=== PATIENT | female | born 1970 | race American Indian/Alaskan Native ===

== ENCOUNTER 2017-07-22 13:14 | Emergency (ER) | payer MEDICAID ==
[~2017-07-22] VITALS: Ht 162.6 cm; Wt 72.7 kg
[~2017-07-22 13:14] MED LIST: DOXY100T2 PO
[2017-07-22 13:16] VITALS: BP 131/79
[2017-07-22] MEDS ORDERED: LIDOcaine 1.5% w/epinephrine 1:200,000 5ml ampul IJ ONE (14:15)
[2017-07-22] MEDS ORDERED: IBUP-1986 PO (14:44)
[2017-07-22] MEDS ORDERED: BACDS PO (14:44)
[2017-07-22 14:49] LABS: URINE HCG NEGATIVE (NEG)
== END 2017-07-22 15:38 | disposition home or self-care (01) ==
LOC: ER 13:14
DX: L02.511 Cutaneous abscess of right hand (principal); Z59.0 Homelessness; Z88.0 Allergy status to penicillin; Z79.2 Long term (current) use of antibiotics
CPT/HCPCS: 10060; 81025; 99283; J3490

== ENCOUNTER 2019-04-07 16:40 | Emergency (ER) | payer MEDICAID ==
[~2019-04-07] VITALS: Ht 162.6 cm; Wt 83.7 kg
[~2019-04-07 16:40] MED LIST changes: +IBUP-1986 PO
[2019-04-07 16:45] VITALS: BP 135/91
[2019-04-07] MEDS ORDERED: ketorolac trometh. 30mg/ml inj. IM ONE (17:10)
[2019-04-07 17:34] LABS: URINE HCG NEGATIVE (NEG)
== END 2019-04-07 17:58 | disposition home or self-care (01) ==
LOC: ER 16:41
DX: N93.8 Other specified abnormal uterine and vaginal bleeding (principal); R10.2 Pelvic and perineal pain; Z98.890 Other specified postprocedural states; Z59.0 Homelessness; Z88.0 Allergy status to penicillin; Z79.899 Other long term (current) drug therapy
CPT/HCPCS: 81025; 96372; 99283; J1885

== ENCOUNTER 2020-03-07 11:55 | Day surgery (SDC) | payer MEDICAID ==
[2020-02-29 14:49] LABS: ALBUMIN 3.8 G/DL (3.4-5.0); ALKALINE PHOSPHATASE 61 IU/L (46-116); BASOPHILS # (AUTO) 0.1 X10'3 (0-0.2); BLOOD UREA NITROGEN 8 MG/DL (7-18); BUN/CREATININE RATIO 11.8 (6.6-38.0); CALCIUM 8.6 MG/DL (8.5-10.1); CHLORIDE 104 MMOL/L (99-107); CREATININE 0.68 MG/DL (0.40-0.90); EOSINOPHILS # (AUTO) 0.1 X10'3 (0-0.9); EOSINOPHILS % (AUTO) 0.9 % (0-6); LYMPHOCYTES # (AUTO) 1.8 X10'3 (1.1-4.8); LYMPHOCYTES % (AUTO) 28.5 % (21-51); MEAN CORPUSCULAR HEMOGLOBIN 31.4 PG (27.0-31.0); MEAN CORPUSCULAR HGB CONC 33.5 g/dL (33.0-36.5); MEAN CORPUSCULAR VOLUME 93.8 FL (78-98); MONOCYTES # (AUTO) 0.4 X10'3 (0-0.9); MONOCYTES % (AUTO) 6.8 % (2-12); NEUTROPHILS # (AUTO) 3.9 X10'3 (1.8-7.7); NEUTROPHILS % (AUTO) 62.8 % (42-75); PRE OP ALT 21 U/L (30-65); PRE OP ANION GAP 6 (8-16); PRE OP AST 13 U/L (10-37); PRE OP BILIRUB, TOTAL 0.4 MG/DL (0.0-1.0); PRE OP GLUCOSE 98 MG/DL (70-104); PRE OP HEMATOCRIT 39.9 % (35.0-45.0); PRE OP HEMOGLOBIN 13.4 g/dL (12.0-16.0); PRE OP PLATELET COUNT 320 X10'3 (140-440); PRE OP POTASSIUM 3.6 MMOL/L (3.4-5.1); PRE OP SODIUM 138 MMOL/L (135-145); RED BLOOD COUNT 4.25 X10'6 (4.20-5.60); TOTAL PROTEIN 7.7 G/DL (6.4-8.2); eGFR > 90 ML/MIN
[2020-02-29 15:00] LABS: HCG SERUM QL NEGATIVE
[2020-03-07] VITALS (7 sets, daily range): BP systolic 112–131; BP diastolic 74–85
[~2020-03-07] VITALS: Ht 162.6 cm; Wt 80.6 kg
[~2020-03-07 11:55] MED LIST changes: -DOXY100T2 PO; -IBUP-1986 PO; +NO HOME MEDS; +albuterol 2.5 MG/3 ML nebule NEB ONE; +famotidine 20mg tablet PO ONE; +ringers solution, lacted 1,000 ML IV SCH
[2020-03-07] MEDS ORDERED: diazepam 5mg tablet PO ONE (16:25)
[2020-03-07] MEDS ORDERED: BUPIVAcaine/PF 2.5 mg/ml (0.25%) 30ml vial ONE (16:58)
[2020-03-07] MEDS ORDERED: neostigmine methylsulfate 1 MG/ML 10ml vial ONE (17:07)
[2020-03-07] MEDS ORDERED: glycopyrrolate 0.2mg/ml inj ONE (17:07)
[2020-03-07] MEDS ORDERED: sevoflurane 250ml liquid IH ONE (17:07)
[2020-03-07] MEDS ORDERED: midazolam 2 mg/2 ml injection ONE (17:10)
[2020-03-07] MEDS ORDERED: fentaNYL/PF 50MCG/1 ML 2ML syringe ONE ×2 (17:10→17:33)
[2020-03-07] MEDS ORDERED: rocuronium 10mg/ml inj IV ONE (17:11)
[2020-03-07] MEDS ORDERED: propofol inj 20 ML IV ONE (17:16)
[2020-03-07] MEDS ORDERED: ondansetron/PF 4mg/2ml inj ONE (17:35)
[2020-03-07] MEDS ORDERED: dexamethasone sod phosphate 4mg/ml inj. ONE (17:35)
[2020-03-07] MEDS ORDERED: meperidine/PF 25mg/ml syringe IV PRN ×3 (17:50)
[2020-03-07] MEDS ORDERED: proCHLORperazine 10 MG/2 ml inj IV PRN (17:50)
[2020-03-07] MEDS ORDERED: ringers solution, lacted 1,000 ML IV SCH (17:50)
[2020-03-07] MEDS ORDERED: morphine 2 MG/ML inj. syringe IV PRN (17:50)
[2020-03-07] MEDS ORDERED: morphine 4 MG/ML inj SYRINge IV PRN (17:50)
[2020-03-07] MEDS ORDERED: ondansetron/PF 4mg/2ml inj IV PRN (17:50)
[2020-03-07] MEDS ORDERED: fluoroscein sod 10% (100mg/ml) 5ml vial ONE (18:26)
[2020-03-07] MEDS ORDERED: ketorolac trometh. 30mg/ml inj. ONE (18:41)
--- NOTE | 2020-03-07 19:00 | NUR ---
Received from OR via BED , accompanied by Anesthesiologist DR SCHREIBER and report given by Anesthesiolgist. PATIENT WAKING UP, DENIES, V/S WNL, NEUROVASCULAR CHECKS INTACT, 20G PIV LUE, SCD ON, BANDAIDS AND STERISTRIPS TO LAP SIGHTS OF ABDOMEN AND WITH PERIPAD WITH SCANT DRAINAGE CDI
[2020-03-07] MEDS ORDERED: oxyCODONE/APAP 5-325mg tablet PO PRN ×2 (19:05)
--- NOTE | 2020-03-07 19:50 | NUR ---
PATIENT A&OX4, PAIN CONTROLLED,, V/S WNL, NEUROVASCULAR CHECKS INTACT, 20G PIV LUE D/C, SCD OFF, BANDAIDS AND STERISTRIPS TO LAP SIGHTS OF ABDOMEN AND WITH PERIPAD WITH SCANT DRAINAGE CDI. I HAVE REVIEWED D/C INSTRUCTIONS WITH PATIENT AND FAMILY AND THEY HAVE VERBALIZED UNDERSTANDING. PATIENT D/C HOME WITH ALL BELONGINGS AND FAMILY GAVE TRANSPORT HOME.
== END 2020-03-07 19:50 | disposition home or self-care (01) ==
LOC: PAS 11:55
PROVIDERS: ATTEND Obstetrics & Gynecology
DX: N92.0 Excessive and frequent menstruation with regular cycle (principal); Z30.2 Encounter for sterilization; N70.11 Chronic salpingitis; N73.6 Female pelvic peritoneal adhesions (postinfective); F32.9 Major depressive disorder, single episode, unspecified; F41.9 Anxiety disorder, unspecified; M19.90 Unspecified osteoarthritis, unspecified site; Z20.822 Contact with and (suspected) exposure to COVID-19; Z86.14 Personal history of Methicillin resistant Staphylococcus aureus infection; Z87.891 Personal history of nicotine dependence; Z79.899 Other long term (current) drug therapy; Z88.0 Allergy status to penicillin; Z98.890 Other specified postprocedural states
CPT/HCPCS: 36415; 58563; 58670; 80053; 82948; 84703; 85025; 86885; 86900; 86901; 87635; 93005; A4649; J1100; J1885; J2250; J2405; J2704; J2710; J3010; J3490; J7030; J7120; A4355; A4618; A6250; A6258; A7000

== ENCOUNTER → 2020-09-01 | Emergency (ER) | payer MEDICAID ==
[~2020-09-01] VITALS: Ht 162.6 cm; Wt 80.0 kg
[~2020-09-01] MED LIST changes: +CEPH250T PO; +SULF1TAB45 PO; -albuterol 2.5 MG/3 ML nebule NEB ONE; -famotidine 20mg tablet PO ONE; -ringers solution, lacted 1,000 ML IV SCH
[2020-09-01 17:09] VITALS: BP 122/78
== END | disposition home or self-care (01) ==
LOC: ER 17:07
DX: L03.113 Cellulitis of right upper limb (principal); Z59.0 Homelessness; Z90.89 Acquired absence of other organs; Z88.0 Allergy status to penicillin
CPT/HCPCS: 99283

== ENCOUNTER 2020-12-03 16:34 | Emergency (ER) | payer MEDICAID ==
[~2020-12-03] VITALS: Ht 160 cm; Wt 77.3 kg
[~2020-12-03 16:34] MED LIST changes: -CEPH250T PO; -SULF1TAB45 PO
[2020-12-03 17:44] LABS: BASOPHILS % (AUTO) 0.7 % (0-1); EOSINOPHILS # (AUTO) 0.1 X10'3 (0-0.9); EOSINOPHILS % (AUTO) 1.9 % (0-6); HEMATOCRIT 42.6 % (35.0-45.0); HEMOGLOBIN 14.7 g/dl (12.0-16.0); LYMPHOCYTES # (AUTO) 2.2 X10'3 (1.1-4.8); LYMPHOCYTES % (AUTO) 38.8 % (21-51); MEAN CORPUSCULAR HEMOGLOBIN 33.3 PG (27.0-31.0); MEAN CORPUSCULAR HGB CONC 34.4 g/dL (33.0-36.5); MEAN CORPUSCULAR VOLUME 96.7 FL (78-98); MEAN PLATELET VOLUME 7.4 FL (7.4-10.4); MONOCYTES # (AUTO) 0.5 X10'3 (0-0.9); NEUTROPHILS # (AUTO) 2.9 X10'3 (1.8-7.7); NEUTROPHILS % (AUTO) 50.6 % (42-75); PLATELET COUNT 290 X10'3 (140-440); RED BLOOD COUNT 4.41 X10'6 (4.20-5.60); RED CELL DISTRIBUTION WIDTH 12.4 % (11.5-14.5); WHITE BLOOD COUNT 5.8 X10'3 (4.5-11.0)
[2020-12-03 17:53] LABS: ALANINE AMINOTRANSFERASE 26 U/L (12-78); ALKALINE PHOSPHATASE 75 IU/L (46-116); ANION GAP 10 (8-16); ASPARTATE AMINO TRANSFERASE 14 U/L (10-37); BILIRUBIN,TOTAL 0.3 MG/DL (0.1-1.0); BLOOD UREA NITROGEN 14 MG/DL (7-18); BUN/CREATININE RATIO 16.7 (6.6-38.0); CALCIUM 8.9 MG/DL (8.5-10.1); CHLORIDE 106 MMOL/L (99-107); CREATININE 0.84 MG/DL (0.40-0.90); GLUCOSE 94 MG/DL (70-104); LIPASE 129 U/L (73-393); SODIUM 141 MMOL/L (135-145); TOTAL PROTEIN 7.9 G/DL (6.4-8.2); eGFR 72 ML/MIN
[2020-12-03 18:07] LABS: CLARITY,URINE CLEAR (Clear); COLOR,URINE YELLOW (Yellow); GLUCOSE, URINE Negative (Neg); KETONES,URINE Negative (Neg); LEUKOCYTE ESTERASE ,URINE NEGATIVE (Neg); NITRITES, URINE NEGATIVE (Neg); OCCULT BLOOD,URINE NEGATIVE (Neg); PROTEIN,URINE Negative (Neg); UA COLLECTION TYPE CLN CATCH MIDSTREAM; UROBILINOGEN,URINE 0.2 E.U/dL (0.2-1.0)
--- NOTE | 2020-12-03 18:19 | NUR ---
pt reports right cva tenderness upon palpation.
[2020-12-03] MEDS ORDERED: acetaminophen 325mg tablet PO ONE (19:20)
[2020-12-03] MEDS ORDERED: ketorolac tromethamine 15mg/ml inj. IV ONE (19:20)
[2020-12-03] MEDS ORDERED: DIAZ-351 PO (19:54)
[2020-12-03] MEDS ORDERED: METH-797 PO (19:54)
[2020-12-03] MEDS ORDERED: PRED20TA PO (19:54)
[2020-12-03 20:14] VITALS: BP 128/88
== END 2020-12-03 20:15 | disposition home or self-care (01) ==
LOC: ER 16:34
DX: S39.012A Strain of muscle, fascia and tendon of lower back, initial encounter (principal); N20.0 Calculus of kidney; M54.41 Lumbago with sciatica, right side; R10.84 Generalized abdominal pain; R11.0 Nausea; Z72.89 Other problems related to lifestyle; Z59.00 Homelessness unspecified; Z90.89 Acquired absence of other organs; Z88.0 Allergy status to penicillin; Z79.899 Other long term (current) drug therapy; X58.XXXA Exposure to other specified factors, initial encounter; Y93.89 Activity, other specified; Y92.89 Other specified places as the place of occurrence of the external cause; Y99.8 Other external cause status
CPT/HCPCS: 36415; 74176; 80053; 81003; 83690; 85025; 96374; 99284; J1885

== ENCOUNTER 2022-09-20 10:18 | Emergency (ER) | payer BC, MEDICAID ==
[~2022-09-20] VITALS: Ht 162.6 cm; Wt 65.9 kg
[~2022-09-20 10:18] MED LIST changes: +DIAZ-351 PO; +METH-797 PO
[2022-09-20 10:23] VITALS: BP 120/81; PULSE 91; RESP 20; TEMP 98.3; O2SAT 98
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
[2022-09-20] MEDS ORDERED: ACET-76 PO (12:39)
== END 2022-09-20 12:42 | disposition home or self-care (01) ==
LOC: ER 10:18
DX: S05.12XA Contusion of eyeball and orbital tissues, left eye, initial encounter (principal); S00.83XA Contusion of other part of head, initial encounter; Y04.8XXA Assault by other bodily force, initial encounter; Y93.89 Activity, other specified; Y92.89 Other specified places as the place of occurrence of the external cause; Y99.8 Other external cause status
CPT/HCPCS: 70450; 70486; 99284

== ENCOUNTER 2023-12-26 14:04 | Emergency (ER) | payer BC, MEDICAID ==
[~2023-12-26] VITALS: Ht 162.6 cm; Wt 65.0 kg
[~2023-12-26 14:04] MED LIST changes: +CYCL-1 PO
[2023-12-26 14:08] VITALS: BP 146/91; PULSE 84; RESP 16; O2SAT 96
[2023-12-26 14:31] LABS: BILIRUBIN,URINE NEGATIVE (Neg); CLARITY,URINE CLEAR (Clear); COLOR,URINE YELLOW (Yellow); GLUCOSE, URINE NEGATIVE (Neg); KETONES,URINE NEGATIVE (Neg); LEUKOCYTE ESTERASE ,URINE NEGATIVE (Neg); NITRITES, URINE NEGATIVE (Neg); OCCULT BLOOD,URINE TRACE-INTACT (Neg); PROTEIN,URINE NEGATIVE (Neg); UA COLLECTION TYPE CLN CATCH MIDSTREAM; UROBILINOGEN,URINE 0.2 E.U/dL (0.2-1.0)
[2023-12-26 14:41] LABS: BACTERIA,URINE FEW /HPF (Neg); MUCUS STRANDS NONE SEEN /LPF (Neg); RBC,URINE 0-2 /HPF (0-2); SQUAMOUS EPITHELIAL CELL,UR FEW /LPF (FEW); WBC,URINE NONE SEEN /HPF (0-4)
[2023-12-26 14:45] LABS: BASOPHILS % (AUTO) 0.7 % (0-1); EOSINOPHILS % (AUTO) 0.8 % (0-6); HEMATOCRIT 44.8 % (35.0-45.0); HEMOGLOBIN 15.2 g/dl (12.0-16.0); LYMPHOCYTES # (AUTO) 1.9 X10'3 (1.1-4.8); MEAN CORPUSCULAR HEMOGLOBIN 33.1 PG (27.0-31.0); MEAN CORPUSCULAR HGB CONC 33.8 g/dL (33.0-36.5); MEAN CORPUSCULAR VOLUME 97.8 FL (78-98); MEAN PLATELET VOLUME 7.4 FL (7.4-10.4); MONOCYTES # (AUTO) 0.3 X10'3 (0-0.9); MONOCYTES % (AUTO) 4.8 % (2-12); NEUTROPHILS # (AUTO) 3.4 X10'3 (1.8-7.7); NEUTROPHILS % (AUTO) 59.7 % (42-75); PLATELET COUNT 295 X10'3 (140-440); RED BLOOD COUNT 4.58 X10'6 (4.20-5.60); RED CELL DISTRIBUTION WIDTH 12.3 % (11.5-14.5); WHITE BLOOD COUNT 5.7 X10'3 (4.5-11.0)
[2023-12-26 14:56] LABS: ALANINE AMINOTRANSFERASE 36 U/L (12-78); ALBUMIN 4.3 G/DL (3.4-5.0); ALBUMIN/GLOBULIN RATIO 1.1 (1.1-1.5); ALKALINE PHOSPHATASE 61 IU/L (46-116); ANION GAP 8 (8-16); ASPARTATE AMINO TRANSFERASE 23 U/L (10-37); BILIRUBIN,TOTAL 0.6 MG/DL (0.1-1.0); BLOOD UREA NITROGEN 18 MG/DL (7-18); BUN/CREATININE RATIO 26.5 (10.0-20.0); CALCIUM 9.3 MG/DL (8.5-10.1); CHLORIDE 104 MMOL/L (99-107); CREATININE 0.68 MG/DL (0.40-0.90); GLUCOSE 97 MG/DL (70-104); SODIUM 140 MMOL/L (135-145); TOTAL CARBON DIOXIDE 27.7 MMOL/L (24-32); TOTAL PROTEIN 8.2 G/DL (6.4-8.2); eCRCL 83 ML/MIN; eGFR > 90 ML/MIN
[2023-12-26] MEDS ORDERED: LIDO15SO9 PO (15:26)
[2023-12-26] MEDS ORDERED: CHLO473M2 PO (15:26)
[2023-12-26 15:46] VITALS: TEMP 98.1
== END 2023-12-26 15:49 | disposition home or self-care (01) ==
LOC: ER 14:05
DX: K02.9 Dental caries, unspecified (principal); F10.90 Alcohol use, unspecified, uncomplicated; Z88.0 Allergy status to penicillin; Z79.899 Other long term (current) drug therapy; Z59.00 Homelessness unspecified
CPT/HCPCS: 36415; 80053; 81001; 83605; 85025; 87040; 99283